=== PATIENT | female | born 1940 | race Caucasian/White ===

== ENCOUNTER 2020-06-05 11:13 | Inpatient (IN) ==
[2020-06-05] MEDS ORDERED: SODIUM CHLORIDE 0.9% 500 ML IV ONE ×2 (11:21→12:41)
--- NOTE | 2020-06-05 11:38 | XRay Report ---
XR chest 1V portable CLINICAL HISTORY: Stroke Like Symptoms COMPARISON STUDY: Chest radiograph January 06, 2018. FINDINGS: Patient is rotated. Lung volumes are normal. Lungs are clear. There is no pneumothorax or p leural effusion. Mild cardiomegaly is unchanged. Mediastinal contours are normal. There is no evidenc e for pulmonary edema. IMPRESSION: No acute cardiopulmonary findings. ACT 112: Negative or not required by law. Electronically signed by: Carroll Gonzalez M.D. 06/05/2020 11:37 AM
[2020-06-05 12:14] LABS: iSTAT Creatinine 0.9 mg/dl (0.6-1.3); iSTAT Hemoglobin 12.9 g/dl (12.0-16.0); iSTAT Ionized Calcium 0.83 mmol/l (1.12-1.32); iSTAT Potassium 3.2 mmol/L (3.3-5.0)
[2020-06-05 12:22] LABS: Alanine Aminotransferase 21 U/L (12-78); Albumin Level 3.1 gm/dl (3.4-5.0); Aspartate Aminotransferase 25 U/L (15-37); BUN Creatinine Ratio 24.7 (10-20); Blood Urea Nitrogen 28 mg/dl (7-18); Calcium 9.3 mg/dl (8.5-10.1); Carbon Dioxide 25 mmol/L (21-32); Chloride 102 mmol/L (98-107); Creatinine Clr Calc Pharmacy 44.8 ml/min; Est GFR (African American) 53.4; Glucose 110 mg/dl (70-99); Magnesium 1.5 mg/dl (1.8-2.4); Potassium 3.1 mmol/L (3.5-5.1); Sodium 136 mmol/L (136-145)
[2020-06-05 12:23] LABS: INR 1.1 (0.9-1.1); Partial Thromboplastin Ratio 0.8; Partial Thromboplastin Time 21.3 Seconds (21.0-31.0); Prothrombin Time 11.4 Seconds (9.0-12.0)
[2020-06-05 12:24] LABS: Hematocrit (blood only) 38.5 % (37-47); Hemoglobin 12.7 g/dL (12.0-16.0); Mean Corpuscular Hemoglobin 30.2 pg (25-34); Mean Corpuscular Volume 91.4 fL (80-100); Mean Platelet Volume 10.2 fL (7.4-10.4); Platelet Count 214 K/uL (130-400); RDW Coefficient of Variation 14.9 % (11.5-14.5); RDW Standard Deviation 49.6 fL (36.4-46.3); Red Blood Count 4.21 M/uL (4.2-5.4); White Blood Count 12.48 K/uL (4.8-10.8)
[2020-06-05 12:27] LABS: Albumin Globulin Ratio 0.8 (0.9-2); Alkaline Phosphatase 59 U/L (45-117); Bilirubin,Total 0.8 mg/dl (0.2-1); Creatine Kinase 210 U/L (26-192); Creatine Kinase MB < 1.0 ng/ml (0.5-3.6); Globulin 3.7 gm/dl (2.5-4.0); NT Pro B Type Natriuretic Pept 1658 pg/ml (0-1800); Total Protein 6.8 gm/dl (6.4-8.2); Troponin I 0.039 ng/ml (0-0.045)
[2020-06-05] MEDS ORDERED: OPTIRAY 320 125ml IV ONE (12:30)
[2020-06-05 12:38] LABS: Basophils # (auto) 0.04 K/uL (0-0.2); Basophils % (auto) 0.3 %; Eosinophils # (auto) 0.01 K/uL (0-0.5); Eosinophils % (auto) 0.1 %; Immature Granulocytes # (auto) 0.05 K/uL (0.00-0.02); Immature Granulocytes % (auto) 0.4 %; Lymphocytes # (auto) 0.67 K/uL (1.2-3.4); Lymphocytes % (auto) 5.4 %; Monocytes # (auto) 0.84 K/uL (0.11-0.59); Monocytes % (auto) 6.7 %; Neutrophils # (auto) 10.87 K/uL (1.4-6.5); Neutrophils % (auto) 87.1 %
[2020-06-05] MEDS ORDERED: methylPREDNISolone 125 MG/2 ML VIAL IV STA (12:41)
[2020-06-05] MEDS ORDERED: ALBUTEROL 0.083% NEBU SOLN 3 ML VIAL NEB STA (12:41)
[2020-06-05] MEDS ORDERED: cefTRIAXone SODIUM 2,000 MG/70 ML BAG IV STA (12:41)
[2020-06-05] MEDS ORDERED: POTASSIUM CHLORIDE CRTAB 20 MEQ TABCR PO STA (12:41)
[2020-06-05] MEDS ORDERED: MAGNESIUM SULFATE / D5W 1 GM/100 ML BAG IV STA (12:42)
[2020-06-05] MEDS ORDERED: ACETAMINOPHEN 1,000 MG/100 ML VIAL IV STA (12:42)
[2020-06-05 12:46] LABS: Influenza A virus by PCR Negative (Neg); Influenza B virus by PCR Negative (Neg); RSV by PCR Negative (Neg); SARS CoV2 RNA(COVID-19) InHosp NEGATIVE (Negative)
--- NOTE | 2020-06-05 12:48 | Electrocardiogram Report ---
Test Reason : Blood Pressure : / mmHG Vent. Rate : 120 BPM Atrial Rate : 120 BPM P-R Int : 186 ms QRS Dur : 074 ms QT Int : 304 ms P-R-T Axes : 039 042 042 degrees QTc Int : 429 ms Poor data quality, interpretation may be adversely affected Sinus tachycardia Otherwise normal ECG When compared with ECG of 06-JAN-2018 12:03, PA interval has decreased Vent. rate has increased BY 60 BPM Confirmed by Kendell Doran ([id number]) on 06/05/2020 12:48:18 PM Referred By: Confirmed By:Kendell Doran
--- NOTE | 2020-06-05 12:49 | CT Scan Report ---
NONCONTRAST HEAD CT, HEAD & NECK CTA HISTORY: Stroke Like Symptoms TECHNIQUE: Multiaxial CT images of the head were performed both before and after the intravenous admi nistration of contrast to evaluate the major cerebral vessels. Multiaxial CT images of the neck were also performed following the intravenous administration of contrast to evaluate the major cervical ve ssels. Maximum intensity projection images were also obtained. A dose lowering technique was utilized adhering to the principles of ALARA. COMPARISON: None. FINDINGS: Head CT: There is no mass, hematoma, midline shift, or acute infarct. Retention cyst within the bilat eral maxillary sinuses. The mastoid air cells are clear. Anterior nasal septal defect is noted. Mild periarticular White matter hypodensity is nonspecific but favors mild microvascular ischemic change. The ventricles and sulci are within normal limits for age. Head CTA: Visualized intracranial internal carotid arteries and basilar artery are widely patent. The re is no significant stenosis, occlusion, or aneurysm seen within the bilateral ACAs, MCAs, or daycare director. The major dural venous sinuses appear patent. Mild calcified plaque within the bilateral carotid siph ons. Focal calcified plaque within the distal intracranial portion of the right vertebral artery resu lting in mild narrowing. The distal left vertebral artery is patent. Hypoplastic bilateral P1 segment s. The bilateral daycare director are fed primarily through the posterior communicating arteries. These are consi dered to be normal variants. Neck CTA: The aortic arch and proximal great vessels are widely patent. There is no significant sten osis, occlusion, or dissection identified within the bilateral common carotid or internal carotid art eries. Focal mild narrowing within the right distal cervical vertebral artery on image 286. This appe ars to be extrinsic compression from the adjacent degenerative changes rather than an intraluminal di ssection. Remaining vertebral arteries are widely patent. IMPRESSION: 1. No acute intracranial abnormality. 2. No significant stenosis, occlusion, or aneurysm within the [place] 3. No significant stenosis, occlusion, or dissection identified within the carotid arteries. 4. Mild focal narrowing within the distal cervical and intracranial portion of the right vertebral ar tl as described above. No definite dissection. ACT 112: Negative or not required by law. Electronically signed by: Del Rucker M.D. 06/05/2020 12:48 PM
--- NOTE | 2020-06-05 12:49 | CT Scan Report ---
NONCONTRAST HEAD CT, HEAD & NECK CTA HISTORY: Stroke Like Symptoms TECHNIQUE: Multiaxial CT images of the head were performed both before and after the intravenous admi nistration of contrast to evaluate the major cerebral vessels. Multiaxial CT images of the neck were also performed following the intravenous administration of contrast to evaluate the major cervical ve ssels. Maximum intensity projection images were also obtained. A dose lowering technique was utilized adhering to the principles of ALARA. COMPARISON: None. FINDINGS: Head CT: There is no mass, hematoma, midline shift, or acute infarct. Retention cyst within the bilat eral maxillary sinuses. The mastoid air cells are clear. Anterior nasal septal defect is noted. Mild periarticular White matter hypodensity is nonspecific but favors mild microvascular ischemic change. The ventricles and sulci are within normal limits for age. Head CTA: Visualized intracranial internal carotid arteries and basilar artery are widely patent. The re is no significant stenosis, occlusion, or aneurysm seen within the bilateral ACAs, MCAs, or engraver picture. The major dural venous sinuses appear patent. Mild calcified plaque within the bilateral carotid siph ons. Focal calcified plaque within the distal intracranial portion of the right vertebral artery resu lting in mild narrowing. The distal left vertebral artery is patent. Hypoplastic bilateral P1 segment s. The bilateral engraver picture are fed primarily through the posterior communicating arteries. These are consi dered to be normal variants. Neck CTA: The aortic arch and proximal great vessels are widely patent. There is no significant sten osis, occlusion, or dissection identified within the bilateral common carotid or internal carotid art eries. Focal mild narrowing within the right distal cervical vertebral artery on image 286. This appe ars to be extrinsic compression from the adjacent degenerative changes rather than an intraluminal di ssection. Remaining vertebral arteries are widely patent. IMPRESSION: 1. No acute intracranial abnormality. 2. No significant stenosis, occlusion, or aneurysm within the [place] 3. No significant stenosis, occlusion, or dissection identified within the carotid arteries. 4. Mild focal narrowing within the distal cervical and intracranial portion of the right vertebral ar tl as described above. No definite dissection. ACT 112: Negative or not required by law. Electronically signed by: Del Rucker M.D. 06/05/2020 12:48 PM
--- NOTE | 2020-06-05 12:50 | CT Scan Report ---
NONCONTRAST HEAD CT, HEAD & NECK CTA HISTORY: Stroke Like Symptoms TECHNIQUE: Multiaxial CT images of the head were performed both before and after the intravenous admi nistration of contrast to evaluate the major cerebral vessels. Multiaxial CT images of the neck were also performed following the intravenous administration of contrast to evaluate the major cervical ve ssels. Maximum intensity projection images were also obtained. A dose lowering technique was utilized adhering to the principles of ALARA. COMPARISON: None. FINDINGS: Head CT: There is no mass, hematoma, midline shift, or acute infarct. Retention cyst within the bilat eral maxillary sinuses. The mastoid air cells are clear. Anterior nasal septal defect is noted. Mild periarticular White matter hypodensity is nonspecific but favors mild microvascular ischemic change. The ventricles and sulci are within normal limits for age. Head CTA: Visualized intracranial internal carotid arteries and basilar artery are widely patent. The re is no significant stenosis, occlusion, or aneurysm seen within the bilateral ACAs, MCAs, or airborne sensor specialist. The major dural venous sinuses appear patent. Mild calcified plaque within the bilateral carotid siph ons. Focal calcified plaque within the distal intracranial portion of the right vertebral artery resu lting in mild narrowing. The distal left vertebral artery is patent. Hypoplastic bilateral P1 segment s. The bilateral airborne sensor specialist are fed primarily through the posterior communicating arteries. These are consi dered to be normal variants. Neck CTA: The aortic arch and proximal great vessels are widely patent. There is no significant sten osis, occlusion, or dissection identified within the bilateral common carotid or internal carotid art eries. Focal mild narrowing within the right distal cervical vertebral artery on image 286. This appe ars to be extrinsic compression from the adjacent degenerative changes rather than an intraluminal di ssection. Remaining vertebral arteries are widely patent. IMPRESSION: 1. No acute intracranial abnormality. 2. No significant stenosis, occlusion, or aneurysm within the [place] 3. No significant stenosis, occlusion, or dissection identified within the carotid arteries. 4. Mild focal narrowing within the distal cervical and intracranial portion of the right vertebral ar tl as described above. No definite dissection. ACT 112: Negative or not required by law. Electronically signed by: Del Rucker M.D. 06/05/2020 12:48 PM
--- NOTE | 2020-06-05 13:03 | Emergency Department Note ---
Impression & Plan Altered mental status, Hypoxia ED Provider Note NAME: SMITH RICHARDSON AGE: 80 SEX: F : 1940 ARRIVES VIA: Ambulance INFORMANT: Patient, ED PROVIDER(S): Brant Zhao MD CHIEF COMPLAINT: Altered mental status HPI: This is an 80-year-old female who presents emergency department with altered mental status. The patient's reports that she seemed very confused last evening with babbling speech. The patient's let the patient go to bed when she woke up this morning and still had the same issues he then called an ambulance and brought the patient to the emergency department. Upon arrival to the emergency department the patient is unable to say how she arrived. She does not know the day of the week and does not know where she is. The patient herself denies any complaints. ROS: See above HPI for pertinent positives & negatives. A total of 10 systems reviewed and were otherwise negative. PAST MEDICAL HISTORY: See Below PAST SURGICAL HISTORY: See Below FAMILY HISTORY: See Below SOCIAL HISTORY: See Below HOME MEDICATIONS: See Below ALLERGIES: See Below VITALS: See Below PHYSICAL EXAMINATION: VITAL SIGNS - Vital signs and nursing notes were reviewed. GENERAL - 80-year-old female appearing stated age who is in no acute distress. Communicates well with provider and answers questions appropriately. SKIN - Without rashes. HEAD - NC/AT. EYES - PERRL with EOMI bilaterally. Sclera anicteric. Palpebral conjunctiva pink and moist with no injection noted. EARS - No deformities of external structures noted on gross examination bilaterally. NOSE - Midline and without cyanosis. No epistaxis or purulent drainage noted. Septum midline without deviation or septal hematoma noted. MOUTH/OROPHARYNX - Without perioral cyanosis. Buccal mucosa pink and moist and without leukoplakia. Tongue midline with equal elevation of palate bilaterally. No tonsillar hypertrophy, erythema, or exudates noted. dentition noted. NECK - Neck with FROM. Supple to palpation. lymphadenopathy noted. No nuchal rigidity. LUNGS - Chest wall symmetric without accessory muscle use, intercostals retractions, or central cyanosis. Normal vesicular breath sounds CTA B/L. No wheezes, rales, or rhonchi appreciated. CARDIAC - RRR with S1/S2. No murmur, rubs, or gallops appreciated. ABDOMEN - Abdominal contour without pulsations or visible masses. BS normoactive all four quadrants. No tenderness, palpable masses, hepatosplenomegaly, or ascites noted. EXTREMITIES - No clubbing or peripheral cyanosis. No pretibial edema present. +3/5 radial, posterior tibial, and dorsalis pedis pulses palpated throughout. +5/5 strength noted in UE/LE bilaterally. NEUROLOGIC - Cranial nerves II through XII grossly intact. Sensory intact to light touch throughout. Patellar reflexes +2/4. PSYCH - A&Ox3 and cooperates fully with examiner. Pt is very pleasant and interacts well with examiner. MEDICAL DECISION MAKING: Patient was seen and evaluated as above in room B4. Review was performed of nursing notes and vital signs. I did review pertinent previous visits and patie nt history. After obtaining a thorough history and physical examination the above work up was performed. This is an 80-year-old female who presents to the emergency department with altered mental status. Using shared medical decision making with the patient's the patient was sent for CAT scan of the head She is hypoxic here requiring oxygen therefore she was given breathing treatments and started on Solu-Medrol as well as magnesium. Chest x-ray does not show any evidence of pneumonia. She is coronavirus negative. She does have a slight elevation in her white blood cell count therefore was started on broad- spectrum antibiotics. I did discuss the case with the hospitalist service who did agree to admit the patient. An order was placed for continuous cardiac monitoring. The monitor shows a rate of 95 with Normal SInus rhythm. The patient was evaluated during a period of high volume and high acuity during the global COVID-19 pandemic, and that diagnosis was suspected/considered upon their initial presentation. Their evaluation, treatment and testing was consistent with current guidelines for patients who present with complaints or symptoms that may be related to COVID-19. Patient was seen while provider was wearing PPE. Triage Nursing notes reviewed. Prior medical records reviewed Vital Signs: reviewed and remarkable for no significant abnormalities Differential diagnosis: Infection, dehydration, metabolic abnormality, hypo/hyperglycemia, electrolyte disturbance, anemia, hypoxia, cardiac sources, intracerebral event, toxicologic, neurologic, as well as other pathologies. ER treatment provided: See below Diagnostics interpreted by me: ECG: Sinus tachycardia no ST elevation or depression rate is 120 QTC is 429 when compared with EKG of 01/06/2018 MT interval has decreased ventricular rate has decreased by 60 Laboratory studies: As stated above and show below. Imaging studies: [place], [place] [phone] CT Scan Report Patient: SMITH RICHARDSON Admit Date: 06/05/20 MR#: [id number] Address1: [address] C[place]TON Acct ID:[id number] Address2: Date: 1940 [facility] Zip: [place] [id number] Age: 80 Location: ED Sex: F Room/Bed: Att Phy: Diagnosis: AMS Selena Phy: Leandro Juan DO Service Date: 06/05/20 Fam Phy: Bonita Rudd MD Interpreting Phy: Del Rucker MD Admit Phy: Ordering Phy: Brant Zhao MD cc: ~ NONCONTRAST HEAD CT, HEAD & NECK CTA HISTORY: Stroke Like Symptoms TECHNIQUE: Multiaxial CT images of the head were performed both before and after the intravenous administration of contrast to evaluate the major cerebral vessels. Multiaxial CT images of the neck were also performed following the intravenous administration of contrast to evaluate the major cervical vessels. Maximum intensity projection images were also obtained. A dose lowering technique was utilized adhering to the principles of ALARA. COMPARISON: None. FINDINGS: Head CT: There is no mass, hematoma, midline shift, or acute infarct. Retention cyst within the bilateral maxillary sinuses. The mastoid air cells are clear. Anterior nasal septal defect is noted. Mild periarticular White matter hypodensity is nonspecific but favors mild microvascular ischemic change. The ventricles and sulci are within normal limits for age. Head CTA: Visualized intracranial internal carotid arteries and basilar artery are widely patent. There is no significant stenosis, occlusion, or aneurysm seen within the bilateral ACAs, MCAs, or fire control assistant. The major dural venous sinuses appear patent. Mild calcified plaque within the bilateral carotid siphons. Focal calcified plaque within the distal intracranial portion of the right vertebral artery resulting in mild narrowing. The distal left vertebral artery is patent. Hypoplastic bilateral P1 segments. The bilateral fire control assistant are fed primarily through the posterior communicating arteries. These are considered to be normal variants. Neck CTA: The aortic arch and proximal great vessels are widely patent. There is no significant stenosis, occlusion, or dissection identified within the bilateral common carotid or internal carotid arteries. Focal mild narrowing within the right distal cervical vertebral artery on image 286. This appears to be extrinsic compression from the adjacent degenerative changes rather than an intraluminal dissection. Remaining vertebral arteries are widely patent. IMPRESSION: 1. No acute intracranial abnormality. 2. No significant stenosis, occlusion, or aneurysm within the muscogee of Ta. 3. No significant stenosis, occlusion, or dissection identified within the carotid arteries. 4. Mild focal narrowing within the distal cervical and intracranial portion of the right vertebral artery as described above. No definite dissection. ACT 112: Negative or not required by law. Electronically signed by: Del Rucker M.D. 06/05/2020 12:48 PM Dictated: 06/05/20 1234 Transcribed: 06/05/20 1234 [place], [place] [phone] XRay Report Patient: SMITH RICHARDSON Admit Date: 06/05/20 MR#: [id number] Address1: [address] [place] [address] [address]QU[place] COTTON Acct ID:[id number] Address2: Date: 1940 [facility] Zip: [place] [address] Age: 80 Location: ED Sex: F Room/Bed: Att Phy: Diagnosis: AMS Selena Phy: Leandro Juan DO Service Date: 06/05/20 Fam Phy: Interpreting Phy: Carroll Gonzalez MD Admit Phy: Ordering Phy: Brant Zhao MD cc: ~ XR chest 1V portable CLINICAL HISTORY: Stroke Like Symptoms COMPARISON STUDY: Chest radiograph January 06, 2018. FINDINGS: Patient is rotated. Lung volumes are normal. Lungs are clear. There is no pneumothorax or pleural effusion. Mild cardiomegaly is unchanged. Mediastinal contours are normal. There is no evidence for pulmonary edema. IMPRESSION: No acute cardiopulmonary findings. ACT 112: Negative or not required by law. Electronically signed by: Carroll Gonzalez M.D. 06/05/2020 11:37 AM Dictated: 06/05/20 1136 Transcribed: 06/05/20 1136 Past Med/Surg History Medical History (Updated 06/06/20 @ 16:29 by Brant Zhao MD) Emphysema lung PER CXR Hyperlipidemia Hypertension Hypothyroidism Low bone density Obesity Rheumatoid arthritis Vitiligo Surgical History (Updated 06/05/20 @ 13:27 by Janie Seaman PA-C) History of total left hip replacement History of tubal ligation Hx of colonoscopy Hx of foot surgery LEFT GANGLION CYSTECTOMY Family History (Updated 06/05/20 @ 13:28 by Janie Seaman PA-C) Mother Heart disease Diabetes Sister Heart disease Father Stroke Social History Smoking Status: Never smoker Second Hand Exposure: No; Hx Alcohol Use: No Hx Substance Use: No Preferred Language: Swedish Communication Ability: Effective Buckle Stapler Required: No Beliefs That Will Affect Care: None marital status: Current Living Situation: Spouse Other Information That Helps Us Care for You: No Feels Safe at Home: Yes Safety Concerns: Feels Safe At This Time Assistive Devices: None Allergies Allergies Allergy/AdvReac Type Severity Reaction Status Date / Time No Known Allergies Allergy Verified 06/05/20 12:40 Home Meds Home Medications Medication Instructions Recorded Confirmed levothyroxine 88 mcg PO QAM 12/29/17 06/05/20 losartan-hydrochlorothiazide 1 tab PO QAM 12/29/17 06/05/20 metoprolol succinate 100 mg PO QAM 12/29/17 06/05/20 felodipine 2.5 mg PO DAILY 06/05/20 06/05/20 leflunomide 10 mg PO DAILY 06/05/20 06/05/20 prednisone 5 mg PO DAILY 06/05/20 06/05/20 simvastatin 40 mg PO HS 06/05/20 06/05/20 Results & Data (ED) Vital Signs Vital Signs - 24 hr 06/05/20 11:05 Temperature 36.8 C Temperature Source Oral Pulse Rate 119 H Pulse Rhythm Regular Pulse Strength Normal Respiratory Rate 30 H Respiratory Effort / Characteristics Spontaneous Blood Pressure 117/67 Blood Pressure Mean 83 Pulse Oximetry 88 L Oxygen Delivery Method Room Air Nasal Cannula Sepsis Recent Fever Within 48 Hours No Sepsis New/Unexplained Change in Mental Status Yes Sepsis Action Taken by Nursing Physician Notified Oxygen Flow Rate - Titration 2 Pulse Oximetry Post Tiitration 96 Laboratory Data Result diagrams: 06/06/20 06:14 06/06/20 06:14 Lab Results 06/05/20 06/05/20 06/05/20 Range/Units 11:36 11:36 11:40 WBC (4.8-10.8) K/uL RBC (4.2-5.4) M/uL Hgb (12.0-16.0) g/dL POC Hgb (12.0-16.0) g/dl Hct (37-47) % POC Hct (37-47) % MCV (80-100) fL MCH (25-34) pg MCHC (32-36) g/dL RDW Std Deviation (36.4-46.3) fL RDW Coeff of Jono (11.5-14.5) % Plt Count (130-400) K/uL MPV (7.4-10.4) fL Immature Gran % (Auto) % Neut % (Auto) % Lymph % (Auto) % Woodruff % (Auto) % Eos % (Auto) % Baso % (Auto) % Neut # (Auto) (1.4-6.5) K/uL Lymph # (Auto) (1.2-3.4) K/uL Woodruff # (Auto) (0.11-0.59) K/uL Eos # (Auto) (0-0.5) K/uL Baso # (Auto) (0-0.2) K/uL Immature Gran # (Auto) (0.00-0.02) K/uL PT (9.0-12.0) Seconds INR (0.9-1.1) APTT (21.0-31.0) Seconds PTT Ratio POC Sodium (135-144) mmol/L Sodium (136-145) mmol/L POC Potassium (3.3-5.0) mmol/L Potassium (3.5-5.1) mmol/L POC Chloride (101-112) mmol/L Chloride (98-107) mmol/L Carbon Dioxide (21-32) mmol/L POC Total CO2 (24-31) mmol/L Anion Gap (3-11) POC Anion Gap (16-25) mmol/L POC BUN (7-18) mg/dl BUN (7-18) mg/dl Creatinine (0.6-1.2) mg/dl POC Creatinine (0.6-1.3) mg/dl Est Cr Clr Drug Dosing ml/min Est GFR ( Amer) Est GFR (Non-Af Amer) BUN/Creatinine Ratio (10-20) Glucose (70-99) mg/dl POC Glucose (other) (70-99) mg/dl Calcium (8.5-10.1) mg/dl POC Ioniz Calcium Didi (1.12-1.32) mmol/l Magnesium (1.8-2.4) mg/dl Total Bilirubin (0.2-1) mg/dl AST (15-37) U/L ALT (12-78) U/L Alkaline Phosphatase (45-117) U/L Total Creatine Kinase (26-192) U/L CK-MB (CK-2) (0.5-3.6) ng/ml CK/CKMB % Calc Troponin I (0-0.045) ng/ml NT-Pro-B Natriuret Pep (0-1800) pg/ml Total Protein (6.4-8.2) gm/dl Albumin (3.4-5.0) gm/dl Globulin (2.5-4.0) gm/dl Albumin/Globulin Ratio (0.9-2) COVID-19 Eval Order CovFluRsv at [facility] SARS-CoV-2 (PCR) NEGATIVE (Negative) Influenza Type A (PCR) Negative (Neg) Influenza Type B (PCR) Negative (Neg) RSV (RT-PCR) Negative (Neg) Bld Cult Staph aureus PCR Positive A (Negative) Blood Culture MRSA PCR Negative (Negative) 06/05/20 06/05/20 06/05/20 Range/Units 11:48 11:48 11:48 WBC 12.48 H (4.8-10.8) K/uL RBC 4.21 (4.2-5.4) M/uL Hgb 12.7 (12.0-16.0) g/dL POC Hgb (12.0-16.0) g/dl Hct 38.5 (37-47) % POC Hct (37-47) % MCV 91.4 (80-100) fL MCH 30.2 (25-34) pg MCHC 33.0 (32-36) g/dL RDW Std Deviation 49.6 H (36.4-46.3) fL RDW Coeff of Jono 14.9 H (11.5-14.5) % Plt Count 214 (130-400) K/uL MPV 10.2 (7.4-10.4) fL Immature Gran % (Auto) 0.4 % Neut % (Auto) 87.1 % Lymph % (Auto) 5.4 % Woodruff % (Auto) 6.7 % Eos % (Auto) 0.1 % Baso % (Auto) 0.3 % Neut # (Auto) 10.87 H (1.4-6.5) K/uL Lymph # (Auto) 0.67 L (1.2-3.4) K/uL Woodruff # (Auto) 0.84 H (0.11-0.59) K/uL Eos # (Auto) 0.01 (0-0.5) K/uL Baso # (Auto) 0.04 (0-0.2) K/uL Immature Gran # (Auto) 0.05 H (0.00-0.02) K/uL PT 11.4 (9.0-12.0) Seconds INR 1.1 (0.9-1.1) APTT 21.3 (21.0-31.0) Seconds PTT Ratio 0.8 POC Sodium (135-144) mmol/L Sodium 136 (136-145) mmol/L POC Potassium (3.3-5.0) mmol/L Potassium 3.1 L (3.5-5.1) mmol/L POC Chloride (101-112) mmol/L Chloride 102 (98-107) mmol/L Carbon Dioxide 25 (21-32) mmol/L POC Total CO2 (24-31) mmol/L Anion Gap 9.0 (3-11) POC Anion Gap (16-25) mmol/L POC BUN (7-18) mg/dl BUN 28 H (7-18) mg/dl Creatinine 1.12 (0.6-1.2) mg/dl POC Creatinine (0.6-1.3) mg/dl Est Cr Clr Drug Dosing 44.8 ml/min Est GFR ( Amer) 53.4 Est GFR (Non-Af Amer) 46.0 BUN/Creatinine Ratio 24.7 H (10-20) Glucose 110 H (70-99) mg/dl POC Glucose (other) (70-99) mg/dl Calcium 9.3 (8.5-10.1) mg/dl POC Ioniz Calcium Didi (1.12-1.32) mmol/l Magnesium 1.5 L (1.8-2.4) mg/dl Total Bilirubin 0.8 (0.2-1) mg/dl AST 25 (15-37) U/L ALT 21 (12-78) U/L Alkaline Phosphatase 59 (45-117) U/L Total Creatine Kinase 210 H (26-192) U/L CK-MB (CK-2) < 1.0 (0.5-3.6) ng/ml CK/CKMB % Calc TNP Troponin I 0.039 (0-0.045) ng/ml NT-Pro-B Natriuret Pep 1658 (0-1800) pg/ml Total Protein 6.8 (6.4-8.2) gm/dl Albumin 3.1 L (3.4-5.0) gm/dl Globulin 3.7 (2.5-4.0) gm/dl Albumin/Globulin Ratio 0.8 L (0.9-2) COVID-19 Eval Order SARS-CoV-2 (PCR) (Negative) Influenza Type A (PCR) (Neg) Influenza Type B (PCR) (Neg) RSV (RT-PCR) (Neg) Bld Cult Staph aureus PCR (Negative) Blood Culture MRSA PCR (Negative) 06/05/20 Range/Units 12:00 WBC (4.8-10.8) K/uL RBC (4.2-5.4) M/uL Hgb (12.0-16.0) g/dL POC Hgb 12.9 (12.0-16.0) g/dl Hct (37-47) % POC Hct 38 (37-47) % MCV (80-100) fL MCH (25-34) pg MCHC (32-36) g/dL RDW Std Deviation (36.4-46.3) fL RDW Coeff of Jono (11.5-14.5) % Plt Count (130-400) K/uL MPV (7.4-10.4) fL Immature Gran % (Auto) % Neut % (Auto) % Lymph % (Auto) % Woodruff % (Auto) % Eos % (Auto) % Baso % (Auto) % Neut # (Auto) (1.4-6.5) K/uL Lymph # (Auto) (1.2-3.4) K/uL Woodruff # (Auto) (0.11-0.59) K/uL Eos # (Auto) (0-0.5) K/uL Baso # (Auto) (0-0.2) K/uL Immature Gran # (Auto) (0.00-0.02) K/uL PT (9.0-12.0) Seconds INR (0.9-1.1) APTT (21.0-31.0) Seconds PTT Ratio POC Sodium 136 (135-144) mmol/L Sodium (136-145) mmol/L POC Potassium 3.2 L (3.3-5.0) mmol/L Potassium (3.5-5.1) mmol/L POC Chloride 100 L (101-112) mmol/L Chloride (98-107) mmol/L Carbon Dioxide (21-32) mmol/L POC Total CO2 27 (24-31) mmol/L Anion Gap (3-11) POC Anion Gap 13.0 L (16-25) mmol/L POC BUN 26 H (7-18) mg/dl BUN (7-18) mg/dl Creatinine (0.6-1.2) mg/dl POC Creatinine 0.9 (0.6-1.3) mg/dl Est Cr Clr Drug Dosing ml/min Est GFR ( Amer) Est GFR (Non-Af Amer) BUN/Creatinine Ratio (10-20) Glucose (70-99) mg/dl POC Glucose (other) 114 H (70-99) mg/dl Calcium (8.5-10.1) mg/dl POC Ioniz Calcium Didi 0.83 L (1.12-1.32) mmol/l Magnesium (1.8-2.4) mg/dl Total Bilirubin (0.2-1) mg/dl AST (15-37) U/L ALT (12-78) U/L Alkaline Phosphatase (45-117) U/L Total Creatine Kinase (26-192) U/L CK-MB (CK-2) (0.5-3.6) ng/ml CK/CKMB % Calc Troponin I (0-0.045) ng/ml NT-Pro-B Natriuret Pep (0-1800) pg/ml Total Protein (6.4-8.2) gm/dl Albumin (3.4-5.0) gm/dl Globulin (2.5-4.0) gm/dl Albumin/Globulin Ratio (0.9-2) COVID-19 Eval Order SARS-CoV-2 (PCR) (Negative) Influenza Type A (PCR) (Neg) Influenza Type B (PCR) (Neg) RSV (RT-PCR) (Neg) Bld Cult Staph aureus PCR (Negative) Blood Culture MRSA PCR (Negative) Administered Medications Acetaminophen (Acetaminophen 325 Mg Tab) 650 mg PO Q4H PRN PRN Reason: Pain or Fever Stop: 07/05/20 16:56 Last Admin: 06/06/20 15:05 Dose: 650 mg Documented by: [id number] Admin: 06/05/20 22:37 Dose: 650 mg Documented by: [id number] Enoxaparin Sodium (Enoxaparin Inj 40 Mg/0.4 Ml Syr) 40 mg SQ HS RABIA Stop: 07/05/20 20:59 Last Admin: 06/05/20 21:13 Dose: 40 mg Documented by: [id number] Felodipine (Felodipine 2.5 Mg Tabcr) 2.5 mg PO DAILY RABIA Stop: 07/06/20 08:59 Last Admin: 06/06/20 07:25 Dose: 2.5 mg Documented by: [id number] HCTZ/Losartan Potassium (Losartan/Hctz 50/12.5mg Tab) 1 tab PO QAM RABIA Stop: 07/06/20 08:59 Last Admin: 06/06/20 07:26 Dose: 1 tab Documented by: [id number] Sodium Chloride (Nss 1000ml) 1,000 mls @ 75 mls/hr IV .[id number] RABIA Stop: 07/05/20 17:59 Last Admin: 06/06/20 08:50 Dose: 75 mls/hr Documented by: [id number] Infusion: 06/06/20 08:49 Dose: 0 mls/hr Documented by: [id number] Admin: 06/05/20 17:35 Dose: 75 mls/hr Documented by: [id number] Methylprednisolone 40 mg/ (Syringe) 0.64 mls @ 1.5 mls/min IV DAILY RABIA Stop: 07/06/20 08:59 Last Admin: 06/06/20 07:25 Dose: 1.5 mls/min Documented by: [id number] Levothyroxine Sodium (Levothyroxine Sodium 88 Mcg Tablet) 88 mcg PO DAILYBB RABIA Stop: 07/06/20 06:29 Last Admin: 06/06/20 06:25 Dose: 88 mcg Documented by: [id number] Metoprolol Succinate (Metoprolol Succ 50mg Ext Rel Tab) 100 mg PO QAM RABIA Stop: 07/06/20 08:59 Last Admin: 06/06/20 07:25 Dose: 100 mg Documented by: [id number] Simvastatin (Simvastatin 40 Mg Tab) 40 mg PO HS [facility] Stop: 07/05/20 20:59 Last Admin: 06/05/20 21:13 Dose: 40 mg Documented by: [id number] Discontinued Medications Albuterol (Albuterol 0.083% Nebu Soln 3 Ml Vial) 2.5 mg NEB NOW STA Stop: 06/05/20 12:42 Last Admin: 06/05/20 13:27 Dose: 2.5 mg Documented by: [id number] Gadobutrol (Gadobutrol 65ml Vial) 9.7 ml IV ONCE ONE Stop: 06/05/20 22:19 Last Admin: 06/05/20 22:18 Dose: 9.7 ml Documented by: [id number] Sodium Chloride (Nss) 500 mls @ 999 mls/hr IV .Q31M ONE Stop: 06/05/20 11:51 Last Infusion: 06/05/20 15:39 Dose: 0 mls/hr Documented by: [id number] Admin: 06/05/20 12:35 Dose: 999 mls/hr Documented by: [id number] Potassium Chloride (K Black / Wtr) 10 meq in 100 mls @ 100 mls/hr IV Q1H RABIA Stop: 06/05/20 14:44 Last Infusion: 06/05/20 19:40 Dose: 0 mls/hr Documented by: [id number] Admin: 06/05/20 17:51 Dose: 100 mls/hr Documented by: [id number] Infusion: 06/05/20 15:57 Dose: 0 mls/hr Documented by: [id number] Admin: 06/05/20 14:48 Dose: 100 mls/hr Documented by: [id number] Sodium Chloride (Nss) 500 mls @ 999 mls/hr IV .Q31M ONE Stop: 06/05/20 13:11 Last Infusion: 06/05/20 15:40 Dose: 0 mls/hr Documented by: [id number] Admin: 06/05/20 14:48 Dose: 999 mls/hr Documented by: [id number] Ceftriaxone Sodium (Rocephin) 2,000 mg in 70 mls @ 140 mls/hr IV NOW STA Stop: 06/05/20 13:10 Last Infusion: 06/05/20 15:40 Dose: 0 mls/hr Documented by: [id number] Admin: 06/05/20 14:48 Dose: 140 mls/hr Documented by: [id number] Magnesium Sulfate/Dextrose (Magnesium Sulfate / D5w) 1 gm in 100 mls @ 100 mls/hr IV NOW STA Stop: 06/05/20 13:41 Last Infusion: 06/05/20 17:31 Dose: 0 mls/hr Documented by: [id number] Admin: 06/05/20 15:10 Dose: 100 mls/hr Documented by: [id number] Acetaminophen (Ofirmev) 1,000 mg in 100 mls @ 400 mls/hr IV NOW STA Stop: 06/05/20 12:56 Last Infusion: 06/05/20 15:40 Dose: 0 mls/hr Documented by: [id number] Admin: 06/05/20 14:50 Dose: 400 mls/hr Documented by: [id number] Ceftriaxone Sodium 1,000 mg/ (Dextrose) 50 mls @ 100 mls/hr IV Q12H RABIA; Protoc ol Stop: 06/12/20 14:15 Last Admin: 06/05/20 15:16 Dose: Not Given Documented by: [id number] Doxycycline Hyclate 100 mg/ (Dextrose) 110 mls @ 50 mls/hr IV Q12H RABIA Stop: 06/12/20 14:15 Last Infusion: 06/06/20 04:48 Dose: 0 mls/hr Documented by: [id number] Admin: 06/06/20 02:46 Dose: 50 mls/hr Documented by: [id number] Infusion: 06/05/20 17:30 Dose: 0 mls/hr Documented by: [id number] Admin: 06/05/20 15:10 Dose: 50 mls/hr Documented by: [id number] Ceftriaxone Sodium 2,000 mg/ (Dextrose) 70 mls @ 100 mls/hr IV Q24H RABIA; Protocol Stop: 06/12/20 13:59 Last Infusion: 06/06/20 14:17 Dose: 0 mls/hr Documented by: [id number] Admin: 06/06/20 13:32 Dose: 100 mls/hr Documented by: [id number] Daptomycin 525 mg/ Syringe 10.5 mls @ 5.25 mls/min IV Q24H RABIA; Protocol Stop: 06/19/20 23:29 Last Admin: 06/06/20 00:13 Dose: 5.25 mls/min Documented by: [id number] Ioversol (Optiray 320 125ml) 119 ml IV ONCE ONE Stop: 06/05/20 12:31 Last Admin: 06/05/20 12:31 Dose: 119 ml Documented by: [id number] Methylprednisolone (Methylprednisolone 125 Mg/2 Ml Vial) 60 mg IV NOW STA Stop: 06/05/20 12:42 Last Admin: 06/05/20 14:49 Dose: 60 mg Documented by: [id number] Potassium Chloride (Potassium Chloride Crtab 20 Meq Tabcr) 40 meq PO NOW STA Stop: 06/05/20 12:42 Last Admin: 06/05/20 14:52 Dose: 40 meq Documented by: [id number] Discharge Plan Visit Data Chief Complaint: Altered Mental Status ED Provider: Brant Zhao Discharge Problem: Altered mental status, Hypoxia Patient Disposition: Admitted As Inpatient Discharge Instructions Interventions: ED Discharge Assessment Last Done: 06/05/20 15:58 Discharge Problem: Altered mental status Qualifiers: Altered mental status type: unspecified Qualified Code(s): R41.82 - Altered mental status, unspecified
[2020-06-05] MEDS ORDERED: cefTRIAXone SODIUM 1,000 MG in DEXTROSE 5% 50 ML IV SCH (14:16)
[2020-06-05] MEDS: POTASSIUM CHLORIDE / WTR 10 MEQ/100 ML PLCT IV SCH ×2 (14:48→17:51)
[2020-06-05] MEDS: DOXYCYCLINE HYCLATE 100 MG in DEXTROSE 5% 100 ML IV SCH (15:10)
--- NOTE | 2020-06-05 15:39 | History and Physical Report ---
DATE OF ADMISSION: 06/05/2020 CHIEF COMPLAINT: Confusion. HISTORY OF PRESENT ILLNESS: This is an 80-year-old female with past medical history significant for hyperlipidemia, hypothyroidism, hypertension, vitiligo, osteoporosis, rheumatoid arthritis involving multiple joints, presents with confusion. The patient lives with her . As per the , she had dinner and before going to bed, she complained of severe headache and she went to sleep around 9-10 p.m. last night. In the midnight, tried to wake her up because she was having like shallow breathing. She seems to stare and did not answer and she went back to sleep. He tried to wake her up a couple of times in the nighttime, in the morning also he tried to wake her up couple of times, she was just starring and at 10:00, he called the 911. Then when the 911 came actually she got up from the bed and sat in the chair in the room, spoke few words, but very low voice. As per , there was no slurring of the speech. EMS when arrived, she was hypoxic and she was placed on oxygen. Currently, she is saturating on 2 liters at 98%. Alert, awake and oriented to name and place. Patient has some difficulty with time, date. She says she is having severe headaches, seems to be all over her head. Denies any blurred vision, no runny nose, no sore throat. She has some cough, but it got resolved now. Denies any shortness of breath. Denies any earaches. As per , she was eating and swallowing okay yesterday. Denies any chest pain. Currently, no nausea, no abdominal pain seems to be normal bowel and bladder movements. No rash. Currently resting comfortably and hemodynamically stable. ALLERGIES: No known drug allergies. PAST MEDICAL HISTORY: As mentioned above. PAST SURGICAL HISTORY: Dental surgery, ligation of oviducts, Pap screen, left total hip replacement. MEDICATIONS: The patient is on aspirin 81 mg p.o. daily, felodipine 2.5 mg p.o. daily, levothyroxine 88 mcg p.o. daily, losartan/hydrochlorothiazide 100/25 mg 1 tablet daily, Toprol-XL 100 mg p.o. daily, prednisone 5 mg p.o. daily, Arava 10 mg p.o. daily. FAMILY HISTORY: Significant for brother has arthritis. Father had stroke. Mother had diabetes, CABG. Sister has arthritis, heart disorder. SOCIAL HISTORY: . No smoking, no alcohol, no drug use. REVIEW OF SYMPTOMS: As per HPI. Rest of review of symptoms negative. PHYSICAL EXAMINATION: GENERAL: The patient is obese, not in acute distress. VITAL SIGNS: Temperature 36.8, pulse 101, respiratory rate 16, blood pressure 107/61, oxygen 98% on 2 liters, she was 88% on room air. HEENT: Pupils equal, round, reactive to light. No pallor, no icterus. Oral mucosa somewhat dry. NECK: No neck masses seen. CARDIOVASCULAR: S1, S2 heard, regular rate and rhythm, no murmur, no gallop. RESPIRATORY SYSTEM: Normal AP diameter. No accessory muscle use. No wheezing, no crackles. ABDOMEN: Soft, bowel sounds present, nontender. No distention. CENTRAL NERVOUS SYSTEM: Alert and oriented to name and place, obeys simple commands. Speech is clear, no facial droop seen. No pronator drift seen. Able to lift and hold the left lower extremity. Sensation is intact, position sense intact. Coordination of movements normal. EXTREMITIES: No edema, no erythema. LABORATORY DATA: WBC 12.4, hemoglobin 12.7, hematocrit 38.5, platelets 214. PT 11.4, INR 1.1, APTT 21.3. Sodium 136, potassium 3.1, chloride 102, CO2 25, BUN 28, creatinine 1.1, serum glucose 110, calcium 9.3, total bilirubin 0.8, AST 24, ALT 21, alkaline phosphatase 59, total creatine kinase 210, CK-MB less than 1, troponin I less than 0.1, 0.039. BNP 1658. SARS-CoV-2 PCR negative. Influenza A and B PCR negative, RSV PCR negative. IMAGING: Chest x-ray, no acute findings seen. CT of the head, no acute abnormalities. CTA of the head and neck, no acute abnormality seen. EKG: Sinus tachycardia at 120. ASSESSMENT AND PLAN: This is an 80-year-old female who presents with confusion. 1. Confusion, unclear reasons, possibly infectious with elevated white count and she was short of breath when she came in, requiring oxygen. CT of the head and CTA of the head and neck were unremarkable. Rule out stroke with brain MRI. Complains of severe headache, but denies any neck pain. No obvious meningeal signs. Empirically starting on Rocephin and doxycycline. We will also follow CT chest without contrast for now. Follow UA and follow the cultures. Gentle fluids, normal saline 80 mL per hour. Closely monitor in med tele. 2. Severe headaches, ct scan unremarkable. We will follow the MRI scan. Flu and SARS is negative. COVID is negative. We will monitor. 3. Hypertension. Continue her home medication of metoprolol, losartan/hydrochlorothiazide and felodipine with holding parameters. 4. Hypothyroidism. Continue Synthroid. 5. History of rheumatoid arthritis. Hold Arava .The patient is on prednisone 5 mg p.o. daily, we will be placing her on Solu-Medrol 40 daily for stress dose and taper back to prednisone 5 mg as soon as possible. 6. Deep venous thrombosis prophylaxis, Lovenox. DISPOSITION: Admit to med tele. Expect to discharge home, follow with family doctor. Level 1 full code. MTDD
--- NOTE | 2020-06-05 16:48 | CT Scan Report ---
CT SCAN OF THE CHEST WITHOUT IV CONTRAST CLINICAL HISTORY: Hypoxia. Tachypnea. COMPARISON STUDY: Chest x-ray dated 06/05/2020. TECHNIQUE: CT scan of the thorax was performed from the thoracic inlet to the upper abdomen. Images are reviewed in the axial, sagittal, and coronal planes. IV contrast was not administered for this ex amination as per the referring clinician. A dose lowering technique was utilized adhering to the [facility] [place]. CT DOSE: 561.84 mGycm FINDINGS: Thyroid: Imaged portions of the thyroid gland are normal in size and attenuation. A coarse calcificat ion is noted in the left lobe. Thoracic aorta: There is mild atherosclerotic calcification of the thoracic aorta, which is normal in caliber and demonstrates variant 3-vessel arch anatomy. There is a bovine arch, and the left vertebr al artery arises directly from the thoracic aorta. Heart: The heart is mildly enlarged and and without pericardial effusion. The coronary arteries are d ensely calcified. Lungs and pleural spaces: The trachea and central airways are clear. There is no airspace consolidati on typical for pneumonia. There are trace pleural effusions with bibasilar scarring/atelectasis. Scat tered calcific granulomas are incidentally noted. Mediastinum: There is no mediastinal lymphadenopathy. There are calcified subcarinal nodes. Ira: There are calcified hilar nodes. The ira are not well assessed without IV contrast. Axillae: There is no axillary lymphadenopathy. Upper abdomen: There is a moderate hiatal hernia. Calcified granulomas are noted in the liver and spl een. Skeletal structures: The skeletal structures are osteopenic. Degenerative change and mild kyphoscolio sis are noted in the thoracic spine. Arthritic change is seen in the shoulders. No lytic or blastic b cal lesions are seen. IMPRESSION: 1. Cardiomegaly and trace pleural effusions. 2. There is no airspace consolidation typical for pneumonia. 3. Hiatal hernia. ACT 112: Negative or not required by law. Electronically signed by: Luis Harding M.D. 06/05/2020 4:47 PM
[2020-06-05] MEDS ORDERED: ALBUTEROL 0.083% NEBU SOLN 3 ML VIAL NEB PRN (16:57)
[2020-06-05] MEDS: SODIUM CHLORIDE 0.9% 1000ML 1,000 ML IV SCH (17:35)
[2020-06-05 18:57] LABS: BUN Creatinine Ratio 26.5 (10-20); Calcium 8.7 mg/dl (8.5-10.1); Creatinine Clr Calc Pharmacy 47.3 ml/min; Est GFR (Non-African American) 49.2; Magnesium 2.1 mg/dl (1.8-2.4)
[2020-06-05] MEDS: SIMVASTATIN 40 MG TAB PO SCH (21:13)
[2020-06-05] MEDS: ENOXAPARIN INJ 40 MG/0.4 ML SYR SQ SCH (21:13)
[2020-06-05 21:52] LABS: Appearance Urine Clear (Clear); Bilirubin Urine Negative (Negative); Blood Urine Negative (Negative); Color Urine Yellow; Glucose Urine UA Negative (Negative); Ketones Urine Negative (Negative); Leukocyte Esterase Urine Negative (Negative); Nitrite Urine Negative (Negative); Protein Urine Negative (Negative); Specific Gravity Urine > 1.045 (1.000-1.030); Urobilinogen Urine Negative (Negative); pH Urine 5.5 (4.5-7.5)
[2020-06-05] MEDS ORDERED: GADOBUTROL 65ML VIAL IV ONE (22:18)
[2020-06-05] MEDS: ACETAMINOPHEN 325 MG TAB PO PRN (22:37)
[2020-06-05] MEDS ORDERED: PROMETHAZINE HCL 12.5 MG in SODIUM CHLORIDE 0.9% 50 ML IV PRN (23:07)
[2020-06-05] MEDS ORDERED: DAPTOmycin 525 MG in SYRINGE 0 ML IV SCH (23:30)
[2020-06-06] MEDS: DOXYCYCLINE HYCLATE 100 MG in DEXTROSE 5% 100 ML IV SCH (02:46)
[2020-06-06] MEDS: LEVOTHYROXINE SODIUM 88 MCG TABLET PO SCH (06:25)
[2020-06-06 06:30] LABS: Basophils # (auto) 0.01 K/uL (0-0.2); Basophils % (auto) 0.1 %; Hematocrit (blood only) 34.5 % (37-47); Hemoglobin 11.4 g/dL (12.0-16.0); Immature Granulocytes # (auto) 0.06 K/uL (0.00-0.02); Immature Granulocytes % (auto) 0.5 %; Lymphocytes # (auto) 0.85 K/uL (1.2-3.4); Lymphocytes % (auto) 6.4 %; Mean Corpuscular Hemoglobin 30.6 pg (25-34); Mean Corpuscular Volume 92.7 fL (80-100); Mean Platelet Volume 10.1 fL (7.4-10.4); Monocytes # (auto) 0.74 K/uL (0.11-0.59); Monocytes % (auto) 5.6 %; Neutrophils # (auto) 11.59 K/uL (1.4-6.5); Neutrophils % (auto) 87.4 %; Platelet Count 185 K/uL (130-400); RDW Coefficient of Variation 15.4 % (11.5-14.5); RDW Standard Deviation 52.5 fL (36.4-46.3); Red Blood Count 3.72 M/uL (4.2-5.4); White Blood Count 13.25 K/uL (4.8-10.8)
[2020-06-06 07:06] LABS: BUN Creatinine Ratio 33.2 (10-20); Calcium 8.5 mg/dl (8.5-10.1); Creatinine Clr Calc Pharmacy 55.9 ml/min; Est GFR (African American) 68.6; Est GFR (Non-African American) 59.2; Magnesium 2.1 mg/dl (1.8-2.4); Potassium 3.8 mmol/L (3.5-5.1)
--- NOTE | 2020-06-06 07:07 | Magnetic Resonance Report ---
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 There is no restricted diffusio n to suggest acute or subacute infarct. Artifact from metallic hardware within the oral cavity limits the study, notably the diffusion-weighted images are degraded. There is no acute intracranial hemorrhage, midline shift, abnormal extra-axial collection, hydrocepha anali or intracranial mass. Age-related involutional changes. Mild scattered T2/FLAIR hyperintensities throughout the white matter suggest chronic microvascular ischemic disease. Cerebral venous sinuses a nd major arterial flow voids are patent. Small right and trace left mastoid effusions. Polypoid mucos al thickening of the maxillary sinuses. Metopic suture. Prior bilateral lens repair. Unremarkable sof t tissues. No abnormal intra-axial or extra-axial enhancement. IMPRESSION: 1. No acute intracranial abnormality, specifically there is no evidence of acute or subacute infarct. 2. Age-related involutional changes with mild chronic microvascular ischemic disease. 3. No abnormal enhancement. ACT 112: Negative or not required by law. The above report was generated using voice recognition software. It may contain grammatical, syntax o r spelling errors. Electronically signed by: Abbe Palacio M.D. 06/06/2020 7:06 AM
[2020-06-06] MEDS: METOPROLOL SUCC 50MG EXT REL TAB PO SCH (07:25)
[2020-06-06] MEDS: methylPREDNISolone 40 MG in SYRINGE 0 ML IV SCH (07:25)
[2020-06-06] MEDS: FELODIPINE 2.5 MG TABCR PO SCH (07:25)
[2020-06-06] MEDS: LOSARTAN/HCTZ 50/12.5MG TAB PO SCH (07:26)
[2020-06-06] MEDS: SODIUM CHLORIDE 0.9% 1000ML 1,000 ML IV SCH ×2 (08:50→23:10)
--- NOTE | 2020-06-06 09:41 | Hospitalist Progress Note ---
Date of Service June 06, 2020 Assessment & Plan (1) Hypothyroidism: (2) Hyperlipidemia: (3) Hypertension: (4) Rheumatoid arthritis: (5) Osteoarthritis of left hip: ASSESSMENT AND PLAN: This is an 80-year-old female who presents with confusion. 1. Metabolic Encephalopathy sec to Sepsis from Staph Bacteremia, WBCs rising, she was short of breath when she came in, requiring oxygen. CT of the head and CTA of the head and neck were unremarkable. Rule out stroke with brain MRI. Complains of severe headache, but denies any neck pain. No obvious meningeal signs. CT chest without contrast noted. Gentle fluids, normal saline 80 mL per hour. Closely monitor in [employer] tele. 2. Severe headaches, CT scan unremarkable. We will follow the MRI scan. Flu and SARS is negative. COVID is negative. We will monitor. 3. Hypertension. Continue her home medication of metoprolol, losartan/hydrochlorothiazide and felodipine with holding parameters. 4. Hypothyroidism. Continue Synthroid. 5. History of rheumatoid arthritis. Hold Arava .The patient is on prednisone 5 mg p.o. daily, we will be placing her on Solu-Medrol 40 daily for stress dose and taper back to prednisone 5 mg as soon as possible. 6. Deep venous thrombosis prophylaxis, Lovenox. Daptomycin Started last PM, I will stop Ceftriaxone, Repeat Blood cx until sterile, ID eval Labs checked ROS-No Headache, No Visual Changes, No Nausea, No Vomiting, No Fever, No Chills, No Neck Pain or Stiffness, No Chest Pain, No Palpitations, No SOB, No WALKER, No Cough, No Sputum, No Wheezing, No Abdominal Pain, No Diarrhea, No Hematemesis, No Hemoptysis, No Unexpected Weight Loss, No Flank pain, No Melena, No Hematochezia, No Frequency, No Urgency, No Burning, No Hematuria, No Rashes, No Diaphoresis. Appetite is Normal Physical Exam Gen-AAO x 3, NAD, Afebrile Head-NCAT, EOMI, PERRLA, Anicteric Sclera, No Posterior Pharyngeal Erythema Neck-Supple, No JVD, No Thyromegaly, No Masses, No LAD, No Bruits Lungs-Clear to Auscultation Bilaterally, No Rales, No Rhonchi, No Wheezing, No Crepitus Chest-No S4, +S1, +S2, No S3, No Murmurs, No Rubs, No Gallops, No Ectopy Abdomen-Soft, Bowel Sounds Present, Non Tender, Non Distended, No Hepatomegaly, No Splenomegaly, No Palpable Masses, No Rebound, No Rigidity, No Guarding Musculoskeletal-Full Range of Motion Bilaterally, No CVAT Extremities-No Cyanosis, No Clubbing, No Edema Nuero-Cranial Nerves II-XII grossly intact, Motor WNL, DTRs WNL, Strength WNL, Non Focal Psych-Normal Mood Admission and Anticipated Discharge Date Admission Date: June 05, 2020 Results & Data Results & Data ([facility]) Vital Signs (Past 12 Hours) Vital Signs Temp Pulse Pulse Resp BP Pulse Ox 06/06/20 07:22 92 06/06/20 07:05 36.5 C 93 H 20 153/82 H 94 06/06/20 03:16 36.5 C 93 H 20 111/69 94 06/05/20 23:19 36.9 C 97 H 18 118/75 92 06/05/20 22:57 93 H
[2020-06-06] MEDS ORDERED: cefTRIAXone SODIUM 2,000 MG in DEXTROSE 5% 50 ML IV SCH (14:00)
[2020-06-06] MEDS: ACETAMINOPHEN 325 MG TAB PO PRN (15:05)
[2020-06-06] MEDS: ceFAZolin 2000MG 2,000 MG/15 ML SYR IV SCH (20:21)
[2020-06-06] MEDS: ENOXAPARIN INJ 40 MG/0.4 ML SYR SQ SCH (20:21)
[2020-06-07] MEDS: ACETAMINOPHEN 325 MG TAB PO PRN ×3 (00:22→21:43)
[2020-06-07] MEDS: ceFAZolin 2000MG 2,000 MG/15 ML SYR IV SCH ×3 (05:29→21:49)
[2020-06-07] MEDS: LEVOTHYROXINE SODIUM 88 MCG TABLET PO SCH (05:29)
[2020-06-07 06:50] LABS: Basophils # (auto) 0.01 K/uL (0-0.2); Basophils % (auto) 0.1 %; Eosinophils # (auto) 0.01 K/uL (0-0.5); Eosinophils % (auto) 0.1 %; Hematocrit (blood only) 32.6 % (37-47); Hemoglobin 10.8 g/dL (12.0-16.0); Immature Granulocytes # (auto) 0.04 K/uL (0.00-0.02); Immature Granulocytes % (auto) 0.3 %; Lymphocytes % (auto) 9.6 %; Mean Corpuscular Hemoglobin 30.7 pg (25-34); Mean Corpuscular Hgb Conc 33.1 g/dL (32-36); Mean Corpuscular Volume 92.6 fL (80-100); Mean Platelet Volume 10.5 fL (7.4-10.4); Monocytes # (auto) 0.92 K/uL (0.11-0.59); Monocytes % (auto) 7.4 %; Neutrophils % (auto) 82.5 %; Platelet Count 201 K/uL (130-400); RDW Coefficient of Variation 15.3 % (11.5-14.5); RDW Standard Deviation 51.8 fL (36.4-46.3); Red Blood Count 3.52 M/uL (4.2-5.4); White Blood Count 12.48 K/uL (4.8-10.8)
[2020-06-07 07:15] LABS: BUN Creatinine Ratio 36.2 (10-20); Calcium 8.1 mg/dl (8.5-10.1); Creatinine Clr Calc Pharmacy 55.5 ml/min; Est GFR (African American) 67.7; Est GFR (Non-African American) 58.4; Potassium 3.5 mmol/L (3.5-5.1)
[2020-06-07] MEDS: METOPROLOL SUCC 50MG EXT REL TAB PO SCH (08:11)
[2020-06-07] MEDS: methylPREDNISolone 40 MG in SYRINGE 0 ML IV SCH (08:11)
[2020-06-07] MEDS: LOSARTAN/HCTZ 50/12.5MG TAB PO SCH (08:12)
[2020-06-07] MEDS: FELODIPINE 2.5 MG TABCR PO SCH (08:12)
--- NOTE | 2020-06-07 10:09 | Hospitalist Progress Note ---
Date of Service June 07, 2020 Assessment & Plan (1) Hypothyroidism: (2) Hyperlipidemia: (3) Hypertension: (4) Rheumatoid arthritis: (5) Osteoarthritis of left hip: ASSESSMENT AND PLAN: This is an 80-year-old female who presents with confusion. 1. Metabolic Encephalopathy sec to Sepsis from Staph Bacteremia, WBCs coming down she was short of breath when she came in, requiring oxygen. CT of the head and CTA of the head and neck were unremarkable. Brain MRI and CTA neg. Complained of severe headache, but denies any neck pain. No obvious meningeal signs. CT chest without contrast noted. Gentle fluids. DC tele. 2. Severe headaches, CT scan unremarkable. We will follow the MRI scan. Flu and SARS is negative. COVID is negative. We will monitor. 3. Hypertension. Controlled 4. Hypothyroidism. Continue Synthroid. 5. History of rheumatoid arthritis. Hold Arava .The patient is on prednisone 5 mg p.o. daily, we will be placing her on Solu-Medrol 40 daily for stress dose and taper back to prednisone 5 mg as soon as possible. 6. Deep venous thrombosis prophylaxis, Lovenox. Daptomycin Started 06/05, Abx de-escalated to Ancef, Repeat Blood cx Neg so far, ID eval pending, She feels a lot better today, ?Antibiotic regimen on DC Labs checked ROS-No Headache, No Visual Changes, No Nausea, No Vomiting, No Fever, No Chills, No Neck Pain or Stiffness, No Chest Pain, No Palpitations, No SOB, No WALKER, No Cough, No Sputum, No Wheezing, No Abdominal Pain, No Diarrhea, No Hematemesis, No Hemoptysis, No Unexpected Weight Loss, No Flank pain, No Melena, No Hematochezia, No Frequency, No Urgency, No Burning, No Hematuria, No Rashes, No Diaphoresis. Appetite is Normal Physical Exam Gen-AAO x 3, NAD, Afebrile Head-NCAT, EOMI, PERRLA, Anicteric Sclera, No Posterior Pharyngeal Erythema Neck-Supple, No JVD, No Thyromegaly, No Masses, No LAD, No Bruits Lungs-Clear to Auscultation Bilaterally, No Rales, No Rhonchi, No Wheezing, No Crepitus Chest-No S4, +S1, +S2, No S3, No Murmurs, No Rubs, No Gallops, No Ectopy Abdomen-Soft, Bowel Sounds Present, Non Tender, Non Distended, No Hepatomegaly, No Splenomegaly, No Palpable Masses, No Rebound, No Rigidity, No Guarding Musculoskeletal-Full Range of Motion Bilaterally, No CVAT Extremities-No Cyanosis, No Clubbing, No Edema Nuero-Cranial Nerves II-XII grossly intact, Motor WNL, DTRs WNL, Strength WNL, Non Focal Psych-Normal Mood Admission and Anticipated Discharge Date Admission Date: June 05, 2020 Results & Data Results & Data ([facility]) Vital Signs (Past 12 Hours) Vital Signs Temp Pulse Pulse Pulse Resp BP Pulse Ox 06/07/20 07:36 36.6 C 86 20 127/71 92 06/07/20 06:02 75 06/07/20 04:05 36.7 C 92 H 18 119/74 92 06/06/20 23:47 36.5 C 87 20 126/73 93
[2020-06-07] MEDS: SODIUM CHLORIDE 0.9% 1000ML 1,000 ML IV SCH (12:30)
--- NOTE | 2020-06-07 16:33 | Cardiology Consultation ---
Date of Consultation June 07, 2020 Assessment & Plan (1) Altered mental status: (2) Rheumatoid arthritis: (3) Staph aureus infection: This patient was immunocompromise due to steroids and treatment for her rheumatoid arthritis which was only started recently. She had a staph bacteremia. There is no evidence of an embolic event or other end organ damage. She was placed on appropriate antibiotics immediately. Her transthoracic echocardiogram had good acoustic windows and I do not see any vegetations or other evidence for endocarditis. She will require several weeks of antibiotics regardless. If she has continuous bacteremia or evidence of embolic events, then I think we should proceed with transesophageal echocardiogram. At this point, I do not believe a GREGORY will add any additional information that would change her course of therapy. I therefore would continue current treatment and infectious disease consult would be helpful. History of Present Illness Attending Physician: Ismael Goff, History of Present Illness This is an 80-year-old female with no prior history of heart disease. She has a history of rheumatoid arthritis and has been on steroids and leflunomide. According the patient the leflunomide was only recently started. The patient was in her usual state of health and then started to have mental status changes. She was brought to the emergency department by her . She was immediately started on broad-spectrum antibiotics. Blood cultures were obtained and 4 bottles are growing staph aureus. Her antibiotics have been narrowed. Work-up including CT of the brain, CT angio of the brain and MRI of the brain have been negative. She had an echocardiogram completed this morning with good acoustic windows. She has some aortic sclerosis but otherwise no significant valvular disease and no evidence of endocarditis. She is alert and oriented during my exam today. She has no ongoing complaints. Allergies Allergy/AdvReac Type Severity Reaction Status Date / Time No Known Allergies Allergy Verified 06/05/20 12:40 Home Medications Medication Instructions Recorded Confirmed Type levothyroxine 88 mcg PO QAM 12/29/17 06/05/20 History losartan-hydrochlorothiazide 1 tab PO QAM 12/29/17 06/05/20 History metoprolol succinate 100 mg PO QAM 12/29/17 06/05/20 History felodipine 2.5 mg PO DAILY 06/05/20 06/05/20 History leflunomide 10 mg PO DAILY 06/05/20 06/05/20 History prednisone 5 mg PO DAILY 06/05/20 06/05/20 History simvastatin 40 mg PO HS 06/05/20 06/05/20 History Patient History Medical History Emphysema lung PER CXR Hyperlipidemia Hypertension Hypothyroidism Low bone density Obesity Rheumatoid arthritis Vitiligo Surgical History History of total left hip replacement History of tubal ligation Hx of colonoscopy Hx of foot surgery LEFT GANGLION CYSTECTOMY Family History Mother Heart disease Diabetes Sister Heart disease Father Stroke Social History Smoking Status: Never smoker Second Hand Exposure: No; Hx Alcohol Use: No Hx Substance Use: No Preferred Language: [place] Citizen Communication Ability: Effective Television Cameraman Required: No Beliefs That Will Affect Care: None marital status: Current Living Situation: Spouse Other Information That Helps Us Care for You: No Feels Safe at Home: Yes Safety Concerns: Feels Safe At This Time Assistive Devices: None Review of Systems Review of Systems: All systems reviewed & are unremarkable except as noted in HPI & below Nothing additional to add. Physical Exam Physical Exam: General: no acute distress and stated age Head: normocephalic, no masses, lesions, tenderness or abnormalities Eyes: conjunctiva are pink and non-injected, sclera clear Neck: supple, no adenopathy, no bruits, normal jugular venous pulse, no hepatojugular reflux Chest: normal shape and normal respiratory effort Lungs: clear to auscultation and percussion Cardiac Exam: - regular rate & rhythm, no murmurs gallops or rubs - normal S1, normal S2 Pulses: 2(+) throughout Abdomen: abdomen soft, non-tender, no abnormal masses and no hepatosplenomegaly Musculoskeletal: no gait disturbance, no joint inflammation, no deforming arthritis Extremities: no edema and no cyanosis Neuro: grossly normal exam Results & Data ([facility]) Vital Signs (Past 12 Hours) Vital Signs Temp Pulse Pulse Resp BP Pulse Ox 06/07/20 11:39 36.4 C L 89 20 159/81 H 92 06/07/20 07:36 36.6 C 86 20 127/71 92 06/07/20 06:02 75 Laboratory Results Laboratory Results - last 24 hr 06/07/20 06/07/20 06:11 06:11 WBC 12.48 H RBC 3.52 L Hgb 10.8 L Hct 32.6 L MCV 92.6 MCH 30.7 MCHC 33.1 RDW Std Deviation 51.8 H RDW Coeff of Jono 15.3 H Plt Count 201 MPV 10.5 H Immature Gran % (Auto) 0.3 Neut % (Auto) 82.5 Lymph % (Auto) 9.6 [place] % (Auto) 7.4 Eos % (Auto) 0.1 Baso % (Auto) 0.1 Neut # (Auto) 10.30 H Lymph # (Auto) 1.20 [place] # (Auto) 0.92 H Eos # (Auto) 0.01 Baso # (Auto) 0.01 Immature Gran # (Auto) 0.04 H Sodium 139 Potassium 3.5 Chloride 109 H Carbon Dioxide 24 Anion Gap 5.0 BUN 33 H Creatinine 0.92 Est Cr Clr Drug Dosing 55.5 Est GFR ( Amer) 67.7 Est GFR (Non-Af Amer) 58.4 BUN/Creatinine Ratio 36.2 H Glucose 106 H Calcium 8.1 L Diagnostic Findings EKG on admission reveals a sinus tachycardia but is otherwise within normal limits. Medications Administered Current Inpatient Medications Acetaminophen (Acetaminophen 325 Mg Tab) 650 mg PO Q4H PRN PRN Reason: Pain or Fever Stop: 07/05/20 16:56 Last Admin: 06/07/20 08:13 Dose: 650 mg Documented by: Albuterol (Albuterol 0.083% Nebu Soln 3 Ml Vial) 2.5 mg NEB Q6R PRN PRN Reason: shortness of breath Stop: 07/05/20 16:56 Enoxaparin Sodium (Enoxaparin Inj 40 Mg/0.4 Ml Syr) 40 mg SQ HS RABIA Stop: 07/05/20 20:59 Last Admin: 06/06/20 20:21 Dose: 40 mg Documented by: Felodipine (Felodipine 2.5 Mg Tabcr) 2.5 mg PO DAILY RABIA Stop: 07/06/20 08:59 Last Admin: 06/07/20 08:12 Dose: 2.5 mg Documented by: HCTZ/Losartan Potassium (Losartan/Hctz 50/12.5mg Tab) 1 tab PO QAM [facility] Stop: 07/06/20 08:59 Last Admin: 06/07/20 08:12 Dose: 1 tab Documented by: Sodium Chloride (Nss 1000ml) 1,000 mls @ 75 mls/hr IV .[id number] [facility] Stop: 07/05/20 17:59 Last Admin: 06/07/20 12:30 Dose: 75 mls/hr Documented by: Methylprednisolone 40 mg/ (Syringe) 0.64 mls @ 1.5 mls/min IV DAILY [facility] Stop: 07/06/20 08:59 Last Admin: 06/07/20 08:11 Dose: 1.5 mls/min Documented by: Cefazolin Sodium (Ancef 2000mg) 2,000 mg in 15 mls @ 3.75 mls/min IV Q8 [facility]; Protocol Stop: 06/20/20 21:59 Last Admin: 06/07/20 14:30 Dose: 3.75 mls/min Documented by: Levothyroxine Sodium (Levothyroxine Sodium 88 Mcg Tablet) 88 mcg PO DAILYBB [facility] Stop: 07/06/20 06:29 Last Admin: 06/07/20 05:29 Dose: 88 mcg Documented by: Metoprolol Succinate (Metoprolol Succ 50mg Ext Rel Tab) 100 mg PO QAM [facility] Stop: 07/06/20 08:59 Last Admin: 06/07/20 08:11 Dose: 100 mg Documented by: Simvastatin (Simvastatin 40 Mg Tab) 40 mg PO HS [facility] Stop: 07/05/20 20:59 Last Admin: 06/05/20 21:13 Dose: 40 mg Documented by: (1) Altered mental status Altered mental status type: unspecified Qualified Code(s): R41.82 - Altered mental status, unspecified
[2020-06-07] MEDS: ENOXAPARIN INJ 40 MG/0.4 ML SYR SQ SCH (21:44)
[2020-06-07] MEDS: SIMVASTATIN 40 MG TAB PO SCH (21:44)
[2020-06-08] MEDS: ACETAMINOPHEN 325 MG TAB PO PRN ×3 (01:57→12:44)
[2020-06-08] MEDS: SODIUM CHLORIDE 0.9% 1000ML 1,000 ML IV SCH ×2 (01:57→16:18)
[2020-06-08] MEDS: LEVOTHYROXINE SODIUM 88 MCG TABLET PO SCH (06:16)
[2020-06-08] MEDS: ceFAZolin 2000MG 2,000 MG/15 ML SYR IV SCH ×3 (06:25→20:21)
[2020-06-08 07:41] LABS: Hematocrit (blood only) 32.3 % (37-47); Hemoglobin 10.7 g/dL (12.0-16.0); Mean Corpuscular Hemoglobin 30.4 pg (25-34); Mean Corpuscular Hgb Conc 33.1 g/dL (32-36); Mean Corpuscular Volume 91.8 fL (80-100); Mean Platelet Volume 10.6 fL (7.4-10.4); Platelet Count 226 K/uL (130-400); RDW Coefficient of Variation 15.3 % (11.5-14.5); RDW Standard Deviation 51.3 fL (36.4-46.3); Red Blood Count 3.52 M/uL (4.2-5.4); White Blood Count 10.77 K/uL (4.8-10.8)
[2020-06-08 08:13] LABS: BUN Creatinine Ratio 26.8 (10-20); Calcium 7.9 mg/dl (8.5-10.1); Creatinine Clr Calc Pharmacy 54.3 ml/min; Est GFR (African American) 65.9; Est GFR (Non-African American) 56.9; Potassium 3.3 mmol/L (3.5-5.1)
[2020-06-08] MEDS: LOSARTAN/HCTZ 50/12.5MG TAB PO SCH (09:11)
[2020-06-08] MEDS: methylPREDNISolone 40 MG in SYRINGE 0 ML IV SCH (09:11)
[2020-06-08] MEDS: METOPROLOL SUCC 50MG EXT REL TAB PO SCH (09:11)
[2020-06-08] MEDS: FELODIPINE 2.5 MG TABCR PO SCH (09:11)
--- NOTE | 2020-06-08 09:37 | Hospitalist Progress Note ---
Date of Service June 08, 2020 Assessment & Plan (1) Hypothyroidism: (2) Hyperlipidemia: (3) Hypertension: (4) Rheumatoid arthritis: (5) Osteoarthritis of left hip: ASSESSMENT AND PLAN: This is an 80-year-old female who presents with confusion. 1. Metabolic Encephalopathy sec to Sepsis from Staph Bacteremia, WBCs coming down she was short of breath when she came in, requiring oxygen. CT of the head and CTA of the head and neck were unremarkable. Brain MRI and CTA neg. Complained of severe headache, but denies any neck pain. No obvious meningeal signs. CT chest without contrast noted. Gentle fluids. DC tele. 2. Severe headaches, CT scan unremarkable. We will follow the MRI scan. Flu and SARS is negative. COVID is negative. We will monitor. 3. Hypertension. Controlled 4. Hypothyroidism. Continue Synthroid. 5. History of rheumatoid arthritis. Hold Arava .The patient is on prednisone 5 mg p.o. daily, we will be placing her on Solu-Medrol 40 daily for stress dose and taper back to prednisone 5 mg as soon as possible. 6. Deep venous thrombosis prophylaxis, Lovenox. Daptomycin Started 06/05, Abx de-escalated to Ancef, Repeat Blood cx Neg so far, ID eval pending, She feels a lot better today, ?Antibiotic regimen on DC, US guided Peripheral Ordered SNF on DC Labs checked ROS-No Headache, No Visual Changes, No Nausea, No Vomiting, No Fever, No Chills, No Neck Pain or Stiffness, No Chest Pain, No Palpitations, No SOB, No WALKER, No Cough, No Sputum, No Wheezing, No Abdominal Pain, No Diarrhea, No Hematemesis, No Hemoptysis, No Unexpected Weight Loss, No Flank pain, No Melena, No Hematochezia, No Frequency, No Urgency, No Burning, No Hematuria, No Rashes, No Diaphoresis. Appetite is Normal Physical Exam Gen-AAO x 3, NAD, Afebrile Head-NCAT, EOMI, PERRLA, Anicteric Sclera, No Posterior Pharyngeal Erythema Neck-Supple, No JVD, No Thyromegaly, No Masses, No LAD, No Bruits Lungs-Clear to Auscultation Bilaterally, No Rales, No Rhonchi, No Wheezing, No Crepitus Chest-No S4, +S1, +S2, No S3, No Murmurs, No Rubs, No Gallops, No Ectopy Abdomen-Soft, Bowel Sounds Present, Non Tender, Non Distended, No Hepatomegaly, No Splenomegaly, No Palpable Masses, No Rebound, No Rigidity, No Guarding Musculoskeletal-Full Range of Motion Bilaterally, No CVAT Extremities-No Cyanosis, No Clubbing, No Edema Nuero-Cranial Nerves II-XII grossly intact, Motor WNL, DTRs WNL, Strength WNL, Non Focal Psych-Normal Mood Admission and Anticipated Discharge Date Admission Date: June 05, 2020 Results & Data Results & Data ([facility]) Vital Signs (Past 12 Hours) Vital Signs Temp Pulse Resp BP BP Pulse Ox 06/08/20 09:06 36.4 C L 86 166/79 H 94 06/07/20 23:50 36.6 C 86 16 170/78 H 93
[2020-06-08] MEDS: SIMVASTATIN 40 MG TAB PO SCH (20:22)
[2020-06-08] MEDS: ENOXAPARIN INJ 40 MG/0.4 ML SYR SQ SCH (20:22)
[2020-06-09] MEDS: SODIUM CHLORIDE 0.9% 1000ML 1,000 ML IV SCH (05:08)
[2020-06-09] MEDS: ceFAZolin 2000MG 2,000 MG/15 ML SYR IV SCH ×2 (05:59→13:26)
[2020-06-09] MEDS: LEVOTHYROXINE SODIUM 88 MCG TABLET PO SCH (05:59)
[2020-06-09] MEDS: ACETAMINOPHEN 325 MG TAB PO PRN (06:01)
[2020-06-09] MEDS: methylPREDNISolone 40 MG in SYRINGE 0 ML IV SCH (07:56)
[2020-06-09] MEDS: METOPROLOL SUCC 50MG EXT REL TAB PO SCH (07:56)
[2020-06-09] MEDS: FELODIPINE 2.5 MG TABCR PO SCH (07:56)
[2020-06-09] MEDS: LOSARTAN/HCTZ 50/12.5MG TAB PO SCH (07:56)
[2020-06-09 08:02] LABS: Basophils # (auto) 0.01 K/uL (0-0.2); Basophils % (auto) 0.1 %; Eosinophils # (auto) 0.03 K/uL (0-0.5); Eosinophils % (auto) 0.3 %; Hemoglobin 10.8 g/dL (12.0-16.0); Immature Granulocytes # (auto) 0.15 K/uL (0.00-0.02); Immature Granulocytes % (auto) 1.6 %; Lymphocytes # (auto) 1.96 K/uL (1.2-3.4); Lymphocytes % (auto) 21.2 %; Mean Corpuscular Hgb Conc 32.7 g/dL (32-36); Mean Corpuscular Volume 91.7 fL (80-100); Monocytes # (auto) 1.09 K/uL (0.11-0.59); Monocytes % (auto) 11.8 %; Neutrophils # (auto) 6.02 K/uL (1.4-6.5); Platelet Count 201 K/uL (130-400); RDW Coefficient of Variation 14.8 % (11.5-14.5); RDW Standard Deviation 50.1 fL (36.4-46.3); White Blood Count 9.26 K/uL (4.8-10.8)
[2020-06-09 08:38] LABS: BUN Creatinine Ratio 29.6 (10-20); Calcium 7.8 mg/dl (8.5-10.1); Creatinine Clr Calc Pharmacy 63.8 ml/min; Est GFR (African American) 80.1; Est GFR (Non-African American) 69.1; Potassium 3.3 mmol/L (3.5-5.1)
--- NOTE | 2020-06-09 10:53 | Discharge Summary ---
Date of Service June 09, 2020 Admission HPI Per Admitting Provider 80-year-old female with past medical history significant for hyperlipidemia, hypothyroidism, hypertension, vitiligo, osteoporosis, rheumatoid arthritis involving multiple joints, presents with confusion. The patient lives with her . As per the , she had dinner and before going to bed, she complained of severe headache and she went to sleep around 9-10 p.m. last night. In the midnight, tried to wake her up because she was having like shallow breathing. She seems to stare and did not answer and she went back to sleep. He tried to wake her up a couple of times in the nighttime, in the morning also he tried to wake her up couple of times, she was just starring and at 10:00, he called the 911. Then when the 911 came actually she got up from the bed and sat in the chair in the room, spoke few words, but very low voice. As per , there was no slurring of the speech. EMS when arrived, she was hypoxic and she was placed on oxygen. Currently, she is saturating on 2 liters at 98%. Alert, awake and oriented to name and place. Patient has some difficulty with time, date. She says she is having severe headaches, seems to be all over her head. Denies any blurred vision, no runny nose, no sore throat. She has some cough, but it got resolved now. Denies any shortness of breath. Denies any earaches. As per , she was eating and swallowing okay yesterday. Denies any chest pain. Currently, no nausea, no abdominal pain seems to be normal bowel and bladder movements. No rash. Currently resting comfortably and hemodynamically stable. Admission Exam Per Admitting Provider GENERAL: The patient is obese, not in acute distress. VITAL SIGNS: Temperature 36.8, pulse 101, respiratory rate 16, blood pressure 107/61, oxygen 98% on 2 liters, she was 88% on room air. HEENT: Pupils equal, round, reactive to light. No pallor, no icterus. Oral mucosa somewhat dry. NECK: No neck masses seen. CARDIOVASCULAR: S1, S2 heard, regular rate and rhythm, no murmur, no gallop. RESPIRATORY SYSTEM: Normal AP diameter. No accessory muscle use. No wheezing, no crackles. ABDOMEN: Soft, bowel sounds present, nontender. No distention. CENTRAL NERVOUS SYSTEM: Alert and oriented to name and place, obeys simple commands. Speech is clear, no facial droop seen. No pronator drift seen. Able to lift and hold the left lower extremity. Sensation is intact, position sense intact. Coordination of movements normal. EXTREMITIES: No edema, no erythema. Principal Diagnosis 1. Metabolic Encephalopathy sec to Sepsis from Staph Bacteremia 2. Severe headaches 3. Hypertension. Continue Synthroid. 5. History of rheumatoid arthritis. Discharge Exam See below Discharge Data Allergies Allergy/AdvReac Type Severity Reaction Status Date / Time No Known Allergies Allergy Verified 06/05/20 12:40 Consultations 06/05/20 13:22 ED Decision to Admit Stat 06/06/20 15:16 Consult Infectious Diseases Routine 06/07/20 10:21 Consult Cardiology Routine Ordered Studies 06/05/20 11:20 CT angio head w con Stat CT angio neck with con Stat CT head/brain wo con Stat 06/05/20 14:16 CT chest diagnostic wo con Routine MR brain wo/w con Routine Current Diagnoses Methicillin susceptible Staphylococcus aureus infection, unspecified site (06/05/20) Hypothyroidism, unspecified (06/05/20) Hyperlipidemia, unspecified (06/05/20) Essential (primary) hypertension (06/05/20) Rheumatoid arthritis, unspecified (06/05/20) Unilateral primary osteoarthritis, left hip (06/05/20) Altered mental status, unspecified (06/05/20) Allergies No Known Allergies Allergy (Verified 06/05/20 12:40) Height/Weight/Isolation Height 5 ft 5 in Weight 97.7 kg Chemistry 06/08/20 06/09/20 06:36 07:42 Sodium 139 140 Potassium 3.3 L 3.3 L Chloride 110 H 112 H Carbon Dioxide 22 23 Anion Gap 7.0 5.0 BUN 25 H 24 H Creatinine 0.94 0.80 Glucose 96 67 L Microbiology 06/07/20 10:33 Blood Aerobic Blood Culture - Preliminary No growth in Aerobic bottle after 24 hours. 06/07/20 10:33 Blood Anaerobic Blood Culture - Preliminary No growth in Anaerobic bottle after 24 hours. 06/07/20 10:39 Blood Aerobic Blood Culture - Preliminary No growth in Aerobic bottle after 24 hours. 06/07/20 10:39 Blood Anaerobic Blood Culture - Preliminary No growth in Anaerobic bottle after 24 hours. 06/06/20 10:09 Blood Aerobic Blood Culture - Preliminary Staphylococcus aureus 06/06/20 10:09 Blood Anaerobic Blood Culture - Preliminary No growth in Anaerobic bottle after 48 hours. 06/06/20 09:58 Blood Aerobic Blood Culture - Preliminary Staphylococcus aureus 06/06/20 09:58 Blood Anaerobic Blood Culture - Preliminary No growth in Anaerobic bottle after 48 hours. 06/05/20 11:48 Blood Aerobic Blood Culture - Final Staphylococcus aureus 06/05/20 11:48 Blood Anaerobic Blood Culture - Final Staphylococcus aureus 06/05/20 11:40 Blood Aerobic Blood Culture - Final Staphylococcus aureus 06/05/20 11:40 Blood Anaerobic Blood Culture - Final Staphylococcus aureus Hospital Course (1) Hypothyroidism: (2) Hyperlipidemia: (3) Hypertension: (4) Rheumatoid arthritis: (5) Osteoarthritis of left hip: ASSESSMENT AND PLAN: This is an 80-year-old female who presents with confusion. 1. Metabolic Encephalopathy sec to Sepsis from Staph Bacteremia, WBCs coming down she was short of breath when she came in, requiring oxygen. CT of the head and CTA of the head and neck were unremarkable. Brain MRI and CTA neg. Complained of severe headache, but denies any neck pain. No obvious meningeal signs. CT chest without contrast noted. Gentle fluids. DC tele. 2. Severe headaches, CT scan unremarkable. We will follow the MRI scan. Flu and SARS is negative. COVID is negative. We will monitor. 3. Hypertension. Controlled 4. Hypothyroidism. Continue Synthroid. 5. History of rheumatoid arthritis. Hold Arava .The patient is on prednisone 5 mg p.o. daily, we will be placing her on Solu-Medrol 40 daily for stress dose and taper back to prednisone 5 mg as soon as possible. 6. Deep venous thrombosis prophylaxis, Lovenox. Daptomycin Started 06/05, Abx de-escalated to Ancef, Repeat Blood cx Neg so far, ID recs 4 weeks IV Ancef, She feels a lot better today, US guided Peripheral placed, Home c [facility] today Labs checked ROS-No Headache, No Visual Changes, No Nausea, No Vomiting, No Fever, No Chills, No Neck Pain or Stiffness, No Chest Pain, No Palpitations, No SOB, No WALKER, No Cough, No Sputum, No Wheezing, No Abdominal Pain, No Diarrhea, No Hematemesis, No Hemoptysis, No Unexpected Weight Loss, No Flank pain, No Melena, No Hematochezia, No Frequency, No Urgency, No Burning, No Hematuria, No Rashes, No Diaphoresis. Appetite is Normal Physical Exam Gen-AAO x 3, NAD, Afebrile Head-NCAT, EOMI, PERRLA, Anicteric Sclera, No Posterior Pharyngeal Erythema Neck-Supple, No JVD, No Thyromegaly, No Masses, No LAD, No Bruits Lungs-Clear to Auscultation Bilaterally, No Rales, No Rhonchi, No Wheezing, No Crepitus Chest-No S4, +S1, +S2, No S3, No Murmurs, No Rubs, No Gallops, No Ectopy Abdomen-Soft, Bowel Sounds Present, Non Tender, Non Distended, No Hepatomegaly, No Splenomegaly, No Palpable Masses, No Rebound, No Rigidity, No Guarding Musculoskeletal-Full Range of Motion Bilaterally, No CVAT Extremities-No Cyanosis, No Clubbing, No Edema Nuero-Cranial Nerves II-XII grossly intact, Motor WNL, DTRs WNL, Strength WNL, Non Focal Psych-Normal Mood Total Time Total Time Spent Total Time Spent (In Minutes): 45 mins Total Time Includes: Examination of the Patient, Discharge Planning, Medication Reconciliation and Communication With Other Providers Discharge Plan Discharge Items Patient Disposition: Home - Home Health Services Reason For Visit: CHANGE IN MENTAL STATUS HYPOXIA Discharge Diagnosis: 1. Metabolic Encephalopathy sec to Sepsis from Staph Bacteremia 2. Severe headaches 3. Hypertension. Continue Synthroid. 5. History of rheumatoid arthritis. Condition on Discharge: Good Health Concerns: Bacteremia Activity: Resume your previous activity Lifting: Gradually increase as tolerated Bathing: No limitations Sexual Activity: When tolerated Exercise/Sports: Rest today and Gradually increase as tolerated Driving/Machine Use: No limitations Weightbearing: Full weightbearing Non-emergency contact: Primary Care Provider and Specialist Call non-emergency contact if: you have any medication questions Follow-up/Referrals: Jose Ramirez MD [Physician] - (1-2 weeks) Leandro Juan DO [Primary Care Provider] - Diet: Heart Healthy Addtl Attending Provider Instructions: Follow up with infectious disease YASMIN to follow Abx Weekly CMP, CRP, CBC, ESR Pending Studies at Discharge: No Stand-Alone Forms: My [facility], Smoking Cessation Medications and DC Order Prescriptions: New cefazolin 1 gram recon soln 2 g IV Q8H Qty: 84 RF: 0 Continued metoprolol succinate 100 mg Tablet Extended Release 24 Hr 100 mg PO QAM RF: 0 losartan-hydrochlorothiazide 100-25 mg Tablet 1 tab PO QAM RF: 0 levothyroxine 88 mcg Capsule 88 mcg PO QAM RF: 0 felodipine 2.5 mg tablet extended release 24 hr 2.5 mg PO DAILY RF: 0 prednisone 5 mg tablet 5 mg PO DAILY RF: 0 leflunomide 10 mg tablet 10 mg PO DAILY RF: 0 simvastatin 40 mg Tablet 40 mg PO HS RF: 0 Discharge Orders: Discharge Order (Routine); Ordered 06/09/20 Ordered By: Ismael Goff Admission Data Admit Date/Time: 06/05/20 14:13 Attending Provider: Ismael Goff Admit Provider: Izaiah Zuniga Primary Care Provider: Leandro Juan Other Providers: Izaiah Zuniga ; Bart Gray ; Jose Ramirez ; Tenzin Kelly I. ; Dennis Figueroa II ; Claudia Lieberman ; Alfa Michel ; Mamadou Dao ; [facility],Home [facility]
== END 2020-06-09 14:16 | disposition home health service (06) | DRG 871 ==
LOC: ED 11:13 → 2N 14:13 → SUATTDRO 14:13 → 2N 15:58 → 3W 06-07 23:44